=== PATIENT | male | born 1990 | race Caucasian/White ===

== ENCOUNTER 2018-09-01 05:01 | Emergency (ER) | payer SELFPAY ==
[~2018-09-01] VITALS: Ht 180.3 cm; Wt 72.6 kg
[2018-09-01 05:18] VITALS: BP 144/82
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
--- NOTE | 2018-09-01 05:35 | NUR ---
XRAY AT BEDSIDE.
[2018-09-01] MEDS ORDERED: KETOROLAC 15 MG/ML VIAL IM ONE (06:25)
--- NOTE | 2018-09-01 06:32 | NUR ---
SHOULDER IMOBOLIZER PLACED ON PTS LEFT SHOULDER
[2018-09-01 06:40] VITALS: BP 136/75
--- NOTE | 2018-09-01 06:40 | NUR ---
Patient discharged with v/s stable. Written and verbal after care instructions given and explained. Patient verbalized understanding. Ambulatory with steady gait. All questions addressed prior to discharge. Advised to follow up with PMD.
== END 2018-09-01 06:40 | disposition home or self-care (01) ==
LOC: MED 05:01
DX: S10.83XA Contusion of other specified part of neck, initial encounter (principal); S00.93XA Contusion of unspecified part of head, initial encounter; W22.8XXA Striking against or struck by other objects, initial encounter; Y93.89 Activity, other specified; Y92.89 Other specified places as the place of occurrence of the external cause; Y99.8 Other external cause status
CPT/HCPCS: 73080; 96372; 99283; J1885; Q0092